=== PATIENT | male | born 1995 | race Caucasian/White ===

== ENCOUNTER 2022-10-17 11:01 | Outpatient (REF) | payer BC, SELFPAY ==
[2022-10-17 19:12] LABS: ALT 67 U/L (16-63); AST 25 U/L (15-37); Albumin 4.1 g/dL (3.4-5.0); Alkaline Phosphatase 76 U/L (46-116); BUN 13 mg/dL (7-18); Bilirubin, Total 0.3 mg/dL (0.2-1.0); CREATININE 1.1 mg/dL (0.70-1.30); Calculated LDL 146 mg/dL (<100); Chloride 107 mmol/L (98-107); Cholesterol 221 mg/dL (<200); Estimated GFR 95.54 (mL/min/1.73m2); Glucose 96 mg/dL (74-106); HDL Cholesterol 56 mg/dL (40-60); Potassium 4.1 mmol/L (3.5-5.1); Sodium 142 mmol/L (136-145); Total Protein 7.2 g/dL (6.4-8.2); Triglyceride 95 mg/dL (<150)
== END 2022-10-17 11:02 | disposition home or self-care (01) ==
LOC: NCHCN 11:01
PROVIDERS: Visit Provider Physician Assistant
DX: M24.80 Other specific joint derangements of unspecified joint, not elsewhere classified (principal); N50.89 Other specified disorders of the male genital organs; Z13.1 Encounter for screening for diabetes mellitus; Z13.220 Encounter for screening for lipoid disorders; Z00.00 Encounter for general adult medical examination without abnormal findings
CPT/HCPCS: 80053; 80061